=== PATIENT | female | born 1955 | race Two or more races ===

== ENCOUNTER 2017-10-17 12:53 | Emergency (ER) | payer BC ==
[2017-10-17 13:06] VITALS: BP 109/66
--- NOTE | 2017-10-17 13:25 | UC ---
Ear Complaint HPI - HPI Summary HPI Summary: Patient presents with complaints of plugged ear and ear pressure. She states she has had problems with her ears like this before and it has been wax. She denies any fever,chills, canal drainage, change in hearing, runny nose, chest congestion, sore throat abdominal pain, nausea, vomiting, or diarrhea. 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 - Allergies/Home Medications Allergies/Adverse Reactions: Allergies Allergy/AdvReac Type Severity Reaction Status Date / Time No Known Allergies Allergy Verified 10/17/17 13:06 PMH/Surg Hx/FS Hx/Imm Hx Previously Healthy: Yes - Surgical History Surgical History: None - Family History Known Family History: Positive: Cardiac Disease - Social History Occupation: Retired Lives: Alone Alcohol Use: None Substance Use Type: None Smoking Status (MU): Never Smoked Tobacco - Immunization History Most Recent Influenza Vaccination: never Review of Systems Constitutional: Negative Skin: Negative Eyes: Negative Respiratory: Negative Cardiovascular: Negative Gastrointestinal: Negative Genitourinary: Negative Motor: Negative Neurovascular: Negative Musculoskeletal: Negative Neurological: Negative Psychological: Negative Is Patient Immunocompromised?: No All Other Systems Reviewed And Are Negative: Yes Physical Exam Triage Information Reviewed: Yes Appearance: Well-Appearing Vital Signs: Initial Vital Signs Temp 98.0 F 10/17/17 12:57 Pulse 81 10/17/17 12:57 Resp 16 10/17/17 12:57 BP 109/66 10/17/17 12:57 Pulse Ox 100 10/17/17 12:57 Vital Signs Reviewed: Yes Eye Exam: Normal ENT Exam: Normal ENT: Positive: Normal ENT inspection, TMs normal Neck exam: Normal Neck: Positive: 1 Respiratory Exam: Normal Cardiovascular Exam: Normal Abdominal Exam: Normal Musculoskeletal Exam: Normal Neurological Exam: Normal Psychological Exam: Normal Skin Exam: Normal Ear Complaint Course/Dx - Course Course Of Treatment: Patient presents with complaints of ear pain, vital signs were normal. patient afebrile. exam benign, although I feel her symtpoms could be related to eustachian tube dysfunction, she has nasocort at home and I told her to use it daily, and also I RX sudafed for one week. I also feel she should follow up with her ENT within 48 hours. She verbalized uderstanding of and was in agreement with the discharge plan. - Differential Dx/Diagnosis Differential Diagnosis/HQI/PQRI: Other - eustachian tube dysfunction Provider Diagnoses: eustachian tube dysfunction Discharge - Discharge Plan Condition: Stable Disposition: HOME Prescriptions: Pseudoephedrine HCL ER TAB* [Sudafed 12 Hour*] 120 mg PO BID #[id number] tab.er Patient Education Materials: Earache (ED) Referrals: Baudilio ROLDAN,Berry Waldrop [Primary Care Provider] - Harsh Morales MD [Medical Doctor] - Additional Instructions: I feel your ear discomfort is consistent with eustachian tube dysfunction. I recommend that you use your nasocart daily, and take the sudafed, and follow up with ENT.
== END 2017-10-17 13:25 | disposition home or self-care (01) ==
LOC: UCEAST 12:53
DX: H69.90 Unspecified Eustachian tube disorder, unspecified ear (principal)
CPT/HCPCS: 99212; G0463